=== PATIENT | female | born 1960 | race African-American/Black ===

== ENCOUNTER 2019-07-22 22:05 | Emergency (ER) | payer MEDICAID ==
[~2019-07-22] VITALS: Ht 170.2 cm; Wt 106.4 kg
[2019-07-22] MEDS ORDERED: IBUPROFEN 800MG TABLET PO ONE (23:30)
[2019-07-22 23:45] VITALS: BP 149/73
== END 2019-07-22 23:46 | disposition home or self-care (01) ==
LOC: ER 22:05
DX: M79.18 Myalgia, other site (principal); V49.49XA Driver injured in collision with other motor vehicles in traffic accident, initial encounter; R03.0 Elevated blood-pressure reading, without diagnosis of hypertension; Y93.89 Activity, other specified; Y92.488 Other paved roadways as the place of occurrence of the external cause
CPT/HCPCS: 99282